=== PATIENT | male | born 1990 | race Caucasian/White ===

== ENCOUNTER 2017-08-15 20:13 | Emergency (ER) | payer BC, OTHER ==
[2017-08-15 20:39] VITALS: BP 145/70
--- NOTE | 2017-08-15 20:58 | UC ---
Abdominal Pain Male HPI - HPI Summary HPI Summary: 27 yo male with umbilical pain x 3 days worse today constant now increased with bending/twisting/movement - History of Current Complaint Chief Complaint: UCAbdominalPain Stated Complaint: ABDOMINAL PAIN Time Seen by Provider: 08/15/17 20:39 Hx Obtained From: Patient Onset/Duration: Gradual Onset, Lasting Days Timing: Constant Severity Initially: Mild Severity Currently: Moderate Pain Intensity: 6 Pain Scale Used: 0-10 Numeric Location: Other - below umbilicus Radiates: No Character: Sharp Aggravating Factor(s): Movement Alleviating Factor(s): Nothing Associated Signs And Symptoms: Positive: Negative - Allergies/Home Medications Allergies/Adverse Reactions: Allergies Allergy/AdvReac Type Severity Reaction Status Date / Time No Known Allergies Allergy Verified 08/15/17 20:34 PMH/Surg Hx/FS Hx/Imm Hx Previously Healthy: Yes - Surgical History Surgical History: None - Family History Known Family History: Positive: Hypertension, Other - no FMH of furuncles or carbuncles - Social History Alcohol Use: Weekly Substance Use Type: None Smoking Status (MU): Never Smoked Tobacco Review of Systems Constitutional: Negative Skin: Negative Eyes: Negative ENT: Negative Respiratory: Negative Cardiovascular: Negative Gastrointestinal: Abdominal Pain Genitourinary: Negative Motor: Negative Neurovascular: Negative Musculoskeletal: Negative Neurological: Negative Psychological: Negative Is Patient Immunocompromised?: No All Other Systems Reviewed And Are Negative: Yes Physical Exam Triage Information Reviewed: Yes Completion Of Physical Exam Limited Due To: Extremis Appearance: Well-Appearing, No Pain Distress, Well-Nourished Vital Signs: Initial Vital Signs Temp 98.2 F 08/15/17 20:34 Pulse 65 08/15/17 20:34 Resp 16 08/15/17 20:34 BP 145/70 08/15/17 20:34 Pulse Ox 99 08/15/17 20:34 Vital Signs Reviewed: Yes Eyes: Positive: Conjunctiva Clear ENT: Positive: Normal ENT inspection. Negative: Nasal congestion, Nasal drainage, Trismus, Muffled/hoarse voice Neck: Positive: Supple, Nontender, No Lymphadenopathy Respiratory: Positive: Lungs clear, Normal breath sounds, No respiratory distress Cardiovascular: Positive: RRR, No Murmur Abdomen Description: Positive: No Organomegaly, Soft, Hernia @ - ? marble size unreducable umbilical herna, McBurney's Point Tenderness - slight. Negative: CVA Tenderness (R), CVA Tenderness (L) Musculoskeletal: Positive: ROM Intact, No Edema Neurological Exam: Normal Psychological Exam: Normal Skin Exam: Normal Abd Pain Male Course/Dx - Course Course Of Treatment: d/w attending at [facility]. Accepts patient. he elects to go there by POV - Differential Dx/Clinical Impression Provider Diagnoses: abdominal pain ? umbilical hernia Discharge - Discharge Plan Condition: Stable Disposition: TRANS [facility] Patient Education Materials: Acute Abdominal Pain (ED) Referrals: Veronika Marino PA [Primary Care Provider] - Additional Instructions: To [facility] ER don't eat or drink anything You may have an umbilical hernia
== END 2017-08-15 20:51 | disposition short-term general hospital (02) ==
LOC: UCCORT 20:13
DX: R10.9 Unspecified abdominal pain (principal)
CPT/HCPCS: 99212; G0463

== ENCOUNTER 2017-09-17 12:24 | Emergency (ER) | payer BC ==
[2017-09-17 14:19] VITALS: BP 156/77
--- NOTE | 2017-09-17 14:37 | UC ---
Throat Pain/Nasal Terence HPI - HPI Summary HPI Summary: increased sinus pressure and headache, ear pain - History of Current Complaint Chief Complaint: UCRespiratory Stated Complaint: RESPIRATORY Time Seen by Provider: 09/17/17 14:14 Hx Obtained From: Patient Onset/Duration: Sudden Onset, Lasting Weeks Severity: Moderate Associated Signs & Symptoms: Positive: Wheezing, Sinus Discomfort, Nasal Discharge - Allergies/Home Medications Allergies/Adverse Reactions: Allergies Allergy/AdvReac Type Severity Reaction Status Date / Time No Known Allergies Allergy Verified 09/17/17 14:19 Home Medications: Home Medications Dextromethorphan-Phenylephrine [Tylenol Cold Max 10-5-325 mg] 2 tab PO BID PRN 09/17/17 [History Confirmed 09/17/17] PMH/Surg Hx/FS Hx/Imm Hx Previously Healthy: Yes - Surgical History Surgical History: None - Family History Known Family History: Positive: Hypertension, Other - no FMH of furuncles or carbuncles - Social History Alcohol Use: Weekly Alcohol Amount: 2-3 Substance Use Type: Marijuana Substance Use Comment - Amount & Last Used: End of Smoking Status (MU): Former Smoker When Did the Patient Quit Smoking/Using Tobacco: 2013 Review of Systems Constitutional: Fatigue Skin: Negative Eyes: Negative ENT: Ear Ache, Nasal Discharge, Sinus Congestion, Sinus Pain/Tenderness Respiratory: Cough Cardiovascular: Negative Gastrointestinal: Negative Motor: Negative Neurovascular: Negative Musculoskeletal: Negative Neurological: Headache Psychological: Negative Is Patient Immunocompromised?: No All Other Systems Reviewed And Are Negative: Yes Physical Exam Triage Information Reviewed: Yes Appearance: Well-Nourished, Ill-Appearing, Pain Distress Vital Signs: Initial Vital Signs Temp 98.2 F 09/17/17 14:10 Pulse 78 09/17/17 14:10 Resp 18 09/17/17 14:10 BP 156/77 09/17/17 14:10 Pulse Ox 98 09/17/17 14:10 Vital Signs Reviewed: Yes Eye Exam: Normal ENT: Positive: Pharyngeal erythema - with exudat on phyarnx, Nasal congestion, TM bulging, TM dull, Sinus tenderness Dental Exam: Normal Neck exam: Normal Neck: Positive: Supple, Nontender, No Lymphadenopathy Respiratory Exam: Normal Respiratory: Positive: Chest non-tender, Normal breath sounds, Wheezing, Inspiration Cardiovascular Exam: Normal Cardiovascular: Positive: RRR, No Murmur, Pulses Normal Abdominal Exam: Normal Abdomen Description: Positive: Nontender, No Organomegaly, Soft Bowel Sounds: Positive: Present Musculoskeletal Exam: Normal Neurological Exam: Normal Psychological Exam: Normal Skin Exam: Normal Throat Pain/Nasal Course/Dx - Course Course Of Treatment: hx obtained, exam performed ,meds reviewed, treated for sinusitis - Differential Dx/Diagnosis Differential Diagnosis/HQI/PQRI: Otitis Media, Pharyngitis, Sinusitis, URI Provider Diagnoses: wheezing. sinusitis Discharge - Discharge Plan Condition: Stable Disposition: HOME Prescriptions: Azithromyxin LILLIE (NF) [Z-Lillie (Zithromax) 250 mg tabs #6] 2 tab PO .TODAY, THEN 1 DAILY #6 tab Patient Education Materials: Sinusitis (ED) Referrals: Veronika Marino PA [Primary Care Provider] -
== END 2017-09-17 14:47 | disposition home or self-care (01) ==
LOC: UCCORT 12:24
DX: J32.9 Chronic sinusitis, unspecified (principal); R06.2 Wheezing; Z87.891 Personal history of nicotine dependence
CPT/HCPCS: 99212; G0463

== ENCOUNTER 2017-10-20 12:23 | Emergency (ER) | payer BC ==
--- NOTE | 2017-10-20 12:50 | UC ---
Nausea/Vomiting/Diarrhea HPI - HPI Summary HPI Summary: 27 year old male presents with complains of vomiting x 1 day. - History of Current Complaint Stated Complaint: VOMITING Time Seen by Provider: 10/20/17 12:49 Hx Obtained From: Patient Onset/Duration: Sudden Onset Severity Initially: Moderate Severity Currently: Moderate Pain Scale Used: 0-10 Numeric - 5 Location: Discrete At: LLQ Character: Sharp Aggravating Factor(s): Nothing - Allergies/Home Medications Allergies/Adverse Reactions: Allergies Allergy/AdvReac Type Severity Reaction Status Date / Time No Known Allergies Allergy Verified 10/20/17 12:52 PMH/Surg Hx/FS Hx/Imm Hx Previously Healthy: Yes - Surgical History Surgical History: None - Family History Known Family History: Positive: Hypertension, Other - no FMH of furuncles or carbuncles - Social History Alcohol Use: Weekly Alcohol Amount: 2-3 Substance Use Type: Marijuana Substance Use Comment - Amount & Last Used: End of Smoking Status (MU): Former Smoker When Did the Patient Quit Smoking/Using Tobacco: 2013 Review of Systems Constitutional: Negative Skin: Negative Eyes: Negative ENT: Negative Respiratory: Negative Cardiovascular: Negative Gastrointestinal: Abdominal Pain, Vomiting, Nausea Genitourinary: Negative Motor: Negative Neurovascular: Negative Musculoskeletal: Negative Neurological: Negative Psychological: Negative All Other Systems Reviewed And Are Negative: Yes Physical Exam Triage Information Reviewed: Yes Vital Signs Reviewed: Yes Eye Exam: Normal ENT Exam: Normal Dental Exam: Normal Neck exam: Normal Neck: Positive: 1 Respiratory Exam: Normal Cardiovascular Exam: Normal Abdomen Description: Positive: Soft, Other: - llq pain Musculoskeletal Exam: Normal Neurological Exam: Normal Psychological Exam: Normal Skin Exam: Normal Naus/Vom/Diarrhea Course/Dx - Differential Dx/Diagnosis Provider Diagnoses: llq pain. nausea. vomiting Condition At Discharge: Stable Discharge - Discharge Plan Condition: Stable Disposition: HOME Prescriptions: Ondansetron ODT TAB* [Zofran 4 MG Odt TAB*] 4 mg PO Q8H PRN #9 tab.odt PRN Reason: Nausea Patient Education Materials: Acute Nausea and Vomiting (ED) Referrals: No Primary Care Phys,NOPCP [Primary Care Provider] -
[2017-10-20 12:55] VITALS: BP 139/83
== END 2017-10-20 13:06 | disposition home or self-care (01) ==
LOC: UCCORT 12:23
DX: R11.2 Nausea with vomiting, unspecified (principal); R10.32 Left lower quadrant pain; F12.90 Cannabis use, unspecified, uncomplicated; Z87.891 Personal history of nicotine dependence
CPT/HCPCS: 99212; G0463

== ENCOUNTER 2017-11-30 17:13 | Emergency (ER) | payer SELFPAY ==
[2017-11-30 20:44] VITALS: BP 140/72
--- NOTE | 2017-11-30 20:50 | UC ---
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 Pt reports he was helping restraining someone and his co-worker who was helping fell on top of his knee. He had mild linping after work. However yesterday he developed some numbness and tingling over the lateral side and key of his LF lower leg. Pain now is 5/10 w/ movement. He is able to bear weight. Pt denies swelling or bruising, calf pain, SOB, chest pain, abdominal pain, N/V/D - History of Current Complaint Chief Complaint: UCLowerExtremity Stated Complaint: LEFT LEG INJURY (WC) Time Seen by Provider: 11/30/17 20:48 Hx Obtained From: Patient Onset/Duration: Sudden Onset, Lasting Days - 3 days, Still Present, Worse Since - today Severity Initially: Moderate Severity Currently: Moderate Pain Intensity: 5 - w/ movement Pain Scale Used: 0-10 Numeric Aggravating Factor(s): Ambulation Alleviating Factor(s): Rest Able to Bear Weight: Yes - Risk Factors Gout Risk Factors: Negative DVT Risk Factors: Negative Septic Arthritis Risk Factor: Negative - Allergies/Home Medications Allergies/Adverse Reactions: Allergies Allergy/AdvReac Type Severity Reaction Status Date / Time No Known Allergies Allergy Verified 11/30/17 20:36 PMH/Surg Hx/FS Hx/Imm Hx Previously Healthy: Yes Respiratory History: Asthma - Surgical History Surgical History: None - Family History Known Family History: Positive: Cardiac Disease, Hypertension, Diabetes Family History: Dyslipidemia - Social History Occupation: Employed Full-time Lives: With Family Alcohol Use: Occasionally Alcohol Amount: 2-3 Substance Use Type: Marijuana Substance Use Comment - Amount & Last Used: End of Smoking Status (MU): Former Smoker When Did the Patient Quit Smoking/Using Tobacco: 2013 - Immunization History Most Recent Influenza Vaccination: Not the Season Review of Systems Constitutional: Negative Skin: Negative Eyes: Negative ENT: Negative Respiratory: Negative Cardiovascular: Negative Gastrointestinal: Negative Genitourinary: Negative Motor: Negative Neurovascular: Negative Musculoskeletal: Other: - Left lower pain and left knee pain s/p injury at work Neurological: Negative Psychological: Negative Is Patient Immunocompromised?: No All Other Systems Reviewed And Are Negative: Yes Physical Exam Triage Information Reviewed: Yes Vital Signs: Initial Vital Signs Temp 98.8 F 11/30/17 20:37 Pulse 60 11/30/17 20:37 Resp 22 11/30/17 20:37 BP 140/72 11/30/17 20:37 Pulse Ox 99 11/30/17 20:37 - Additional Comments Vital Signs Reviewed: Yes General: well developed, well nourished male sitting in the examining table w/o any apparent distress Eyes: Positive: Conjunctiva Clear - PERRLA, EOMI, fundi grossly normal ENT: Positive: Normal ENT inspection, Hearing grossly normal, Pharynx normal, TMs normal Neck: Positive: Supple, Nontender, No Lymphadenopathy Respiratory: Positive: Chest nontender, Lungs clear, Normal breath sounds, No respiratory distress Cardiovascular: Positive: RRR, No Murmur, Pulses Normal, Brisk Capillary Refill Abdomen Description: Positive: Nontender, No Organomegaly, Soft. Negative: CVA Tenderness (R), CVA Tenderness (L) Bowel Sounds: Positive: Present Musculoskeletal: Positive: Strength Intact, No Edema,LF knee: Pt is able to bear weight and ambulate with limping. No surface trauma, soft tissue swelling , or obvious effusion. No overlying erythema or warmth. The L knee is without obvious asymmetry or deformity when compared with the R knee. Decreased ROM of LF knee due to pain. No tenderness to palpation of the patella, no effusion or ballottement. No tenderness over the infrapatellar tendon. Point tenderness over the medial joint line, No tenderness over the medial or lateral tibial plateaus. No tenderness over the proximal fibular head, No tenderness, fullness or mass of the popliteal fossa. No quadriceps tenderness. No laxity of the ACL. PCL, MCL, or LCL. no collateral ligament laxity to valgus or varus stress. Negative Mark/Drawer sign. Negative Gisell. Distal motor and neurovascular status intact. Neurological Exam: Normal Psychological Exam: Normal Skin Exam: Normal Lower Extremity Course/Dx - Course Course Of Treatment: 27 y/o male presents the urgent care c/o left knee pain s/ p injury while restraining a Pt wt work on 11/28/2017. Pt reports he was helping restraining someone and his co-worker who was helping fell on top of his knee. He had mild linping after work. However yesterday he developed some numbness and tingling over the lateral side and key of his LF lower leg. Pain now is 5/ 10 w/ movement. He is able to bear weight. Pt denies swelling or bruising, calf pain, SOB, chest pain, abdominal pain, N/V/D. Hx obtained. LF knee X-ray ordered. Impression:No acute osseous injury. LF lower leg X-ray ordered, Impression: no evidence of fractured observed. Pt's knee immobilized w/ sudheer bandage.Advised RICE. Avoid strenuous exercise or standing for long period of time. Strongly advised if not improvement of symptoms to f/u with Orthopedic Dr Calero or your PCP in 1 week for further evaluation and treatment. Pt's BP is elevated today advised to decrease salt in diet, monitor BP and f/u with PCP for further management. PT understood and agreed with D/C instructions. - Differential Dx/Diagnosis Differential Diagnosis/HQI/PQRI: Contusion, Fracture (Closed), Sprain, Strain, Tendonitis Provider Diagnoses: 1- Left knee pain s/p injury. 2-elevated BP w/o Hx of HTN Discharge - Discharge Plan Condition: Stable Disposition: HOME Prescriptions: Naproxen [Naproxen 500 mg] 500 mg PO Q8H PRN #30 tab PRN Reason: Pain Patient Education Materials: Knee Sprain (ED), Low-Sodium Diet (ED) Forms: *Work Release Referrals: [facility] [Outside] - 1 Week Daniel Calero MD [Medical Doctor] - 1 Week Additional Instructions: 1-Please take medications as directed to alleviate pain and swelling. 2-Please apply ice, keep your knee immobilized with the Sudheer bandage 3- Please f/u with Orthopedic DR Calero or your PCP in 1 week is not improvement of symptoms for further evaluation and treatment. 4-Your BP is elevated today. please decrease salt in your diet, monitor BP and if it continues to be elevated please f/u with your PCP for further management
--- NOTE | 2017-11-30 21:41 | RAD ---
INDICATION: Left knee injury. TECHNIQUE: 4 views of the left knee were obtained. FINDINGS: The bones are in normal alignment. No joint effusion or fracture is seen. Joint spaces appear maintained. IMPRESSION: NO EVIDENCE FOR FRACTURE.
--- NOTE | 2017-11-30 21:43 | RAD ---
INDICATION: Left lower leg injury. TECHNIQUE: 2 views of the left lower leg were obtained. FINDINGS: The bones are normal alignment. No fracture is seen. IMPRESSION: NO EVIDENCE OF FRACTURE.
[2017-11-30] MEDS ORDERED: Naproxen TAB* 250 MG PO ONE (21:56)
== END 2017-11-30 22:18 | disposition home or self-care (01) ==
LOC: UCCORT 17:13
DX: M25.562 Pain in left knee (principal); R03.0 Elevated blood-pressure reading, without diagnosis of hypertension; R20.0 Anesthesia of skin; R20.2 Paresthesia of skin; J45.909 Unspecified asthma, uncomplicated; F12.90 Cannabis use, unspecified, uncomplicated; Z87.891 Personal history of nicotine dependence
CPT/HCPCS: 99212; A9270-GY; G0463

== ENCOUNTER 2018-03-01 07:15 | Emergency (ER) | payer BC, OTHER ==
--- OUTSIDE RECORDS SUMMARY | 2018-03-01 07:32 | XMS REPORT ---
:1990 External Reference #:[id number] Author Organization [facility] Address [address] [address] Phone [phone] Care Team Providers Name Role Phone Patient's Choice Primary Care Physician Unavailable Payers Type Date Identification Numbers Payment Provider Subscriber Workers Compensation Effective: Policy Number: Nysif Humberto Cristobal 2017 [id number] Onset: 2017 PayID: RELL [address] [address] [place] [address] Problems Date Description Provider Status Onset: 12/01/2017 Asthma Opal Reece MD Active Onset: 12/01/2017 Anxiety Opal Reece MD Active Onset: 12/01/2017 Knee joint effusion Opal Reece MD Active Onset: 12/01/2017 Traumatic injury of common peroneal nerve Opal Reece MD Active Family History Date Family Member(s) Problem(s) Comments General No Current Problems Social History Type Date Description Comments Lives With Family Occupation [employer] ETOH Use Occasionally consumes alcohol Smoking Patient is a former smoker Smoking Patient is a former smoker Quit 4 years ago Exercise Type/Frequency Exercises regularly Allergies, Adverse Reactions, Alerts Date Description Reaction Status Severity Comments 12/01/2017 NKDA active Medications Medication Date Status Form Strength Qnty SIG Indications Ordering Provider Roll-A-Bout Active Disp 1 S84.12xA Zaneb 018 avery-a-ector Reece MD ut knee scooter Diclofenac Active Tablets DR 75mg 60tabs take 1 S84.12xA Zaneb Sodium 018 tablet MD Shanell twice a day with food No Active Hx Unknown Medications 018 - 018 Vital Signs Date Vital Result Comment 02/02/2018 Height 67 inches 5'7" Weight 195.00 lb Heart Rate 115 /min Respiratory Rate 16 /min Pain Level 5 BMI (Body Mass Index) 30.5 kg/m2 12/22/2017 Height 67 inches 5'7" Weight 195.00 lb per pt BP Systolic 150 mmHg BP Diastolic 80 mmHg Respiratory Rate 16 /min Body Temperature 97.6 F Pain Level 6 BMI (Body Mass Index) 30.5 kg/m2 12/14/2017 Height 67 inches 5'7" Weight 195.00 lb BP Systolic 118 mmHg BP Diastolic 70 mmHg Respiratory Rate 18 /min Pain Level 6 BMI (Body Mass Index) 30.5 kg/m2 12/01/2017 Heart Rate 76 /min BP Systolic 146 mmHg BP Diastolic 72 mmHg Respiratory Rate 17 /min Body Temperature 97.2 F Pain Level 7 Results Description No Information Procedures Description No Information Encounters Type Date Location Provider CPT E/M Dx Office Visit 12/22/2017 [place] [id number] S84.12xD 1:[facility] Office Visit 12/14/2017 [place] [address] S84.12xA 1:15p [facility] M25.462 M25.562 Office Visit 12/01/2017 11:00a [facility] [address] S84.12xA [facility] S84.12xA M25.462 M25.462 S84.12xA Plan of Care Future Appointment(s):03/16/2018 10:00 am - Daniel Calero MD [facility]02/02/2018 - Daniel Calero MDS84.12xD Injury of peroneal nerve at lower leg level, left leg, subsFollow up:6 weeks
[2018-03-01 07:40] VITALS: BP 145/79
[2018-03-01] MEDS ORDERED: predniSONE TAB* 20 MG PO ONE (07:48)
[2018-03-01] MEDS ORDERED: Azithromycin TAB* 250 MG PO ONE (07:49)
--- NOTE | 2018-03-01 08:02 | ED ---
Respiratory - HPI Summary HPI Summary: 27 yr old male with the complaint of cough for 2.5 weeks. He has been coughing up yellow green sputum and this morning during a coughing spell he coughed up some blood. his voice has been a little hoarse as well. He has ill exposures in the family. No other complaints. - History of Current Complaint Chief Complaint: UCRespiratory Stated Complaint: COUGH W/BLOOD,ST,CONGESTION Time Seen by Provider: 03/01/18 07:48 Pain Intensity: 0 - Allergy/Home Medications Allergies/Adverse Reactions: Allergies Allergy/AdvReac Type Severity Reaction Status Date / Time No Known Allergies Allergy Verified 03/01/18 07:34 Home Medications: Home Medications Pseudoephedrine HCl [Sudafed] 30 mg PO QID PRN 03/01/18 [History Confirmed 03/01] PMH/Surg Hx/FS Hx/Imm Hx Respiratory History: Reports: Hx Asthma - exercised induced Infectious Disease History: No Infectious Disease History: Denies: Hx Clostridium Difficile, Hx Hepatitis, Hx Human Immunodeficiency Virus (HIV), Hx of Known/Suspected MRSA, Hx Shingles, Hx Tuberculosis, Hx Known/ Suspected VRE, Hx Known/Suspected VRSA, History Other Infectious Disease, Traveled Outside the [place] in Last 30 Days - Family History Known Family History: Positive: Cardiac Disease, Hypertension, Diabetes, Other - no FMH of furuncles or carbuncles Family History: Dyslipidemia - Social History Alcohol Use: Occasionally Alcohol Amount: 2-3 Substance Use Type: Reports: None Substance Use Comment - Amount & Last Used: End of Smoking Status (MU): Former Smoker Review of Systems Constitutional: Negative Positive: Cough All Other Systems Reviewed And Are Negative: Yes Physical Exam Triage Information Reviewed: Yes Vital Signs On Initial Exam: Initial Vitals Temp Pulse Resp BP Pulse Ox 98.3 F 75 18 145/79 98 03/01/18 07:35 03/01/18 07:35 03/01/18 07:35 03/01/18 07:35 03/01/18 07:35 Vital Signs Reviewed: Yes Appearance: Positive: Well-Appearing, No Pain Distress Skin: Positive: Warm, Skin Color Reflects Adequate Perfusion Head/Face: Positive: Normal Head/Face Inspection Eyes: Positive: EOMI ENT: Positive: TM dull - right, TM red - right Neck: Positive: Nontender Respiratory/Lung Sounds: Positive: Clear to Auscultation, Breath Sounds Present Cardiovascular: Positive: RRR. Negative: Murmur Abdomen Description: Positive: Nontender Musculoskeletal: Positive: Strength/ROM Intact Neurological: Positive: Sensory/Motor Intact, Alert, Oriented to Person Place, Time, CN Intact II-III Psychiatric: Positive: Normal - Uday Coma Scale Best Eye Response: 4 - Spontaneous Best Motor Response: 6 - Obeys Commands Best Verbal Response: 5 - Oriented Coma Scale Total: 15 Diagnostics - Vital Signs Vital Signs Temp Pulse Resp BP Pulse Ox 03/01/18 07:35 98.3 F 75 18 145/79 98 - Laboratory Lab Statement: Any lab studies that have been ordered have been reviewed, and results considered in the medical decision making process. - Radiology chest xray pa/lat Xray Interpretation: No Acute Changes Radiology Interpretation Completed By: Radiologist Disposition - Course Course Of Treatment: 27 yr old with otitis media and laryngitis. Rx with zithromax and prednisone - Diagnoses Provider Diagnoses: Laryngotracheobronchitis, Otitis media, Hypertension Discharge - Sign-Out/Discharge Documenting (check all that apply): Discharge/Admit/Transfer - Discharge Plan Condition: Good Disposition: HOME Prescriptions: Azithromycin TAB* [Zithromax TAB (Z-LILLIE) 250 mg #6 tabs] 2 tab PO .TODAY, THEN 1 DAILY #1 lillie predniSONE TAB* [Deltasone TAB*] 20 mg PO DAILY #3 tab Patient Education Materials: Ear Infection (ED), Croup in Adults (ED), Hypertension (ED) Referrals: No Primary Care Phys,NOPCP [Primary Care Provider] - [facility] [Outside] - Billing Disposition and Condition Condition: GOOD Disposition: HOME
--- NOTE | 2018-03-01 08:31 | RAD ---
INDICATION: Hemoptysis COMPARISON: December 07, 2013 TECHNIQUE: PA and lateral dual-energy views were obtained. FINDINGS: Bones/Soft Tissues: There are no acute bony findings. Cardiomediastinal: The cardiomediastinal silhouette is normal. Lungs: There are no infiltrates. Pleura: There are no pleural effusions. Other: None IMPRESSION: NORMAL CHEST.
== END 2018-03-01 08:59 | disposition home or self-care (01) ==
LOC: UCCORT 07:15
DX: J40 Bronchitis, not specified as acute or chronic (principal); H66.91 Otitis media, unspecified, right ear; I10 Essential (primary) hypertension; Z87.891 Personal history of nicotine dependence
CPT/HCPCS: 71046; 99212; A9270-GY; G0463; J7512

== ENCOUNTER → 2018-04-12 05:59 | Day surgery (SDC) | payer BC, OTHER ==
[~2018-04-12 05:59] MED LIST: Buffered Lidocaine 0.9% SYRIN* 5 ML/SYR SYRINGE INTRADERM ONE; Bupivacaine 0.5% SDV PF* 30ML VIAL ONE; Dexamethasone TAB* 4 MG ONE; Dexamethasone TAB* 4 MG PO ONE; DiMENhydriNATE IV* 50 MG/ML VIAL IV PUSH PRN; Famotidine IV* 10 MG/ML 2 ML (20 mg) IV ONE; Famotidine IV* 10 MG/ML 2 ML (20 mg) ONE; Ketorolac INJ* 30 MG/ML 1 ML VIAL ONE; Lidocaine 2% PF * 5 ML VIAL ONE; Midazolam* 1 MG/ML 5 ML VIAL (5 MG) ONE; Morphine INJ* 2 MG/ML 1 ML CARPUJECT IV PRN; Naloxone* 0.4 MG/ML 1 ML VIAL IV PRN; Ondansetron INJ* 2 MG/ML VIAL ONE; Ondansetron ODT TAB* 4 MG ONE; PROCHLORPERAZINE INJ 5 MG/ML 2 ML VIAL IV PRN; PROCHLORPERAZINE INJ 5 MG/ML 2 ML VIAL ONE; Propofol* 10 MG/ML 20 ML BTL IV PUSH ONE; Scopolamine 1.5 mg* PATCH TRANSDERM PRN; Scopolamine PATCH Remove* 1 NOTE MISC PATCH OFF ONE; ceFAZolin 2 GM PREMIX (*) 2 GM/50 ML BAG IVPB ONE; fentaNYL* 50 MCG/ML 2 ML VIAL (100 MCG VIAL) IV PRN; fentaNYL* 50 MCG/ML 2 ML VIAL (100 MCG VIAL) ONE; oxyCODONE/Acetamin 5/325 MG* TAB ONE; oxyCODONE/Acetamin 5/325 MG* TAB PO PRN
--- NOTE | 2018-04-12 08:15 | OP ---
Operative Report - Blank - Operative Report Date of Operation: 04/12/18 Note: PATIENT: Humberto Lentz DATE OF : 1990 DATE OF SURGERY: 04/12/2018 SURGEON: Daniel Calero MD PRINCIPAL NETWORK ARCHITECT: ESTEVAN Patel, whos assistance was necessary for positioning, retraction, help with instrumentation, and closure. ANESTHESIOLOGIST: Dr. Samson PREOPERATIVE DIAGNOSIS: Left superficial peroneal nerve entrapment POSTOPERATIVE DIAGNOSIS: Left superficial peroneal nerve entrapment OPERATION: Left superficial peroneal nerve surgical release ANESTHESIA: LMA IMPLANTS: none TOURNIQUET TIME: Less than one hour with a well-padded thigh tourniquet at 250 mmHg SPECIMENS: None ESTIMATED BLOOD LOSS: Minimal COMPLICATIONS: none STATUS: Stable from the operating room to the recovery room and then home. INDICATIONS FOR PROCEDURE: Humberto had a work-related injury and persistent pain centered at the SPN where it pierces the fascia. We tried extensive nonoperative treatment and pain persisted. Both operative and non-operative treatment alternatives were reviewed. Further, the nature and risks of surgery were reviewed in careful detail, in the office as well as the pre-operative holding area. Our discussions regarding the risks of surgery included, but were not limited to, infection, wound problems, nerve injury, neuroma, RSD, persistent symptoms, blood clot, failure of the surgery, need for further surgery and even the remote chance of catastrophic complication, including loss of limb. DESCRIPTION OF PROCEDURE: The patient was seen in the preoperative holding unit and informed written consent was obtained. The appropriate extremity was marked. The patient was then brought to the operating room and carefully positioned on the operating room table. Anesthesia was induced. All bony prominences were padded with great care. A well-padded thigh tourniquet was placed. A chlorhexidine based pre- scrub was performed followed by a chloraprep prep and drape in standard sterile fashion. A surgical safety pause was then conducted in which we confirmed the appropriate patient, extremity, planned procedure, availability of equipment, indication and administration of prophylactic antibiotics, and DVT prophylaxis in the form of a compression boot on the non-surgical extremity. I began with Esmarch exsanguination of the limb and inflated the tourniquet. An approximately 5cm longitudinal incision was made at the anterolateral distal leg, centered 10cm proximal to the tip of the distal fibula. This was also the spot identified by Humberto pre-op as the epicenter of the pain. I utilized careful blunt dissection through the subcutaneous tissue to the fascial layer. The superficial peroneal nerve was identified and traced proximally to where it pierces through the fascia. I carefully dissected out the nerve. There were a lot of adhesions of the nerve to the fascia. I then carefully released the fascia proximally and distally from where the nerve pierces the fascia. I ellipsed out and excised a small area of the fascia to decompress the nerve. I carefully explored the nerve to confirm that there were no further constrictions. It appeared to be well released. The wound was copiously irrigated and meticulously closed in layers utilizing 3- 0 Monocryl and 3-0 nylon. A sterile dressing was then applied. The patient was then awakened from anesthesia and transferred to the recovery room in stable condition. There were no complications. All needle and sponge counts were correct at the end of the case. ATTESTATION: I attest I was present and scrubbed and performed the critical portions of the procedure myself. POSTOPERATIVE PLAN: Follow-up will be in 2 weeks for likely suture removal and progression of weightbearing and activities.
[2018-04-12 09:22] VITALS: BP 131/85
== END | disposition home or self-care (01) ==
LOC: OR 05:59
PROVIDERS: ATTEND Orthopaedic Surgery
DX: S84.12XA Injury of peroneal nerve at lower leg level, left leg, initial encounter (principal); G57.32 Lesion of lateral popliteal nerve, left lower limb; Z87.891 Personal history of nicotine dependence; Y35.811A Legal intervention involving manhandling, law enforcement official injured, initial encounter; Y92.149 Unspecified place in prison as the place of occurrence of the external cause; Y99.0 Civilian activity done for income or pay
CPT/HCPCS: A9270-GY; J0690; J0780; J1885; J2250; J2704; J3010; J8540

== ENCOUNTER 2019-10-19 08:26 | Emergency (ER) | payer OTHER ==
[2019-10-19 08:52] VITALS: BP 140/90
[2019-10-19] MEDS ORDERED: Ibuprofen TAB* 600 MG PO ONE (09:10)
--- NOTE | 2019-10-19 09:10 | UC ---
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 Two co- workers landed on his left knee. Pt states he has pain when walking but more pain when going down the stairs. Took 800mg of Ibuprofen at 2330 10/18/19" -he hurt his knee anteriorly as he brought the kid down to the floor and then had a valgus force applied to his knee by 2 different people helping in the restraint. -knee buckled initially when he stood up but it has not ocured since then. -he had an injury to left peroneal nerve ion past that took > 7 mo to recover from. these sx are not similar. -pain is anterior knee, medial and lateral, but says its deep. -last night he iced it, elec=vated and rested and now nearly all karl swelling is resolved. no bruising. doesnt feel warm. -not giving out or locking - History of Current Complaint Chief Complaint: UCLowerExtremity Stated Complaint: WC-LEFT KNEE INJURY Time Seen by Provider: 10/19/19 08:57 Pain Intensity: 4 - Allergies/Home Medications Allergies/Adverse Reactions: Allergies Allergy/AdvReac Type Severity Reaction Status Date / Time No Known Allergies Allergy Verified 10/19/19 08:53 Home Medications: Home Medications Ibuprofen TAB* [Motrin TAB* 800 MG] 800 mg PO Q6H PRN 10/19/19 [History Confirmed 10/19/19] PMH/Surg Hx/FS Hx/Imm Hx Previously Healthy: Yes - Surgical History Surgical History: Yes Surgery Procedure, Year, and Place: Lt LOWER LEG - NERVE ENTRAPMENT FROM SCAR - REMOVAL OF SCAR TISSUE - Family History Known Family History: Positive: Cardiac Disease, Hypertension, Diabetes, Other - no FMH of furuncles or carbuncles Family History: Dyslipidemia - Social History Alcohol Use: Occasionally Alcohol Amount: 5-15 Substance Use Type: None Substance Use Comment - Amount & Last Used: daily Smoking Status (MU): Former Smoker Amount Used/How Often: pack a day for 6 yrs When Did the Patient Quit Smoking/Using Tobacco: 2013 - Immunization History Most Recent Influenza Vaccination: Not the 2017/2017 Season Review of Systems All Other Systems Reviewed And Are Negative: Yes Constitutional: Positive: Negative Skin: Positive: Negative Respiratory: Positive: Negative Cardiovascular: Positive: Negative Gastrointestinal: Positive: Negative Motor: Negative: Decreased ROM, Weakness Neurovascular: Positive: Negative. Negative: Decreased Sensation Musculoskeletal: Positive: Other: - see above Neurological: Positive: Negative. Negative: Weakness, Paresthesia, Numbness Psychological: Positive: Negative Is Patient Immunocompromised?: No Physical Exam Triage Information Reviewed: Yes Appearance: Well-Appearing, No Pain Distress, Well-Nourished - very pleasant. good historian Vital Signs: Initial Vital Signs Temp 97.9 F 10/19/19 08:47 Pulse 73 10/19/19 08:47 Resp 16 10/19/19 08:47 BP 140/90 10/19/19 08:47 Pulse Ox 100 10/19/19 08:47 Vital Signs Reviewed: Yes Eye Exam: Normal Respiratory Exam: Normal Cardiovascular Exam: Normal Musculoskeletal Exam: Normal Musculoskeletal: Positive: Other: - left knee - possible minimal swelling pre- patella area. FROM w/o cerpitus B/L. no varus/valgus laxity b/l. Neg lachmans. neg Ant/post drawer test. sterngth 5/5. sensationi ntact. no bruising. cool to touch. no erythema. no skin tears. Neurological Exam: Normal Psychological Exam: Normal Skin Exam: Normal Knee Pain Course/Dx - Course Course Of Treatment: Left knee xray - neg -[place] [facility] [place] best friend is their medical appointment scheduler and she will get him in w/someone this week in the office for f/u. will give work release for the week bc shortend week w/ holiday and uncertin of when f/u will be. -ppwk completed to the best of my ability. -knee sleeve. ice rest, nsaids. -he understood me well, appreacitive and agreeable with plan. - Differential Dx/Diagnosis Differential Diagnosis/HQI/PQRI: Contusion, Dislocation, Sprain, Strain Provider Diagnosis: Left knee pain Discharge ED - Sign-Out/Discharge Documenting (check all that apply): Patient Departure All imaging exams completed and their final reports reviewed: Yes - Discharge Plan Condition: Stable Disposition: HOME Patient Education Materials: Knee Pain (ED) Forms: *Work Release Referrals: No Primary Care Phys,NOPCP [Primary Care Provider] - Additional Instructions: We talked about you following up with your orthopedic surgeon Dr Donald this week. Ice, rest, elevation, ibuprofen. Buying a knee sleeve may be helpful as well. -Your blood pressure is slightly elevated today at 140/90, which is frequently elevated with pain and ibuprofen. You should have this rechecked this week. - Billing Disposition and Condition Condition: STABLE Disposition: Home
== END 2019-10-19 10:21 | disposition home or self-care (01) ==
LOC: UCCORT 08:26
DX: M25.562 Pain in left knee (principal); Z87.891 Personal history of nicotine dependence
CPT/HCPCS: 99211; A9270-GY; G0463

== ENCOUNTER 2019-12-03 16:57 | Emergency (ER) | payer SELFPAY ==
--- OUTSIDE RECORDS SUMMARY | 2019-12-03 18:58 | XMS REPORT | Continuity of Care Document ---
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 Problems Active Problems Provider Date Asthma Opal Reece MD Onset: 12/01/2017 Anxiety Opal Reece MD Onset: 12/01/2017 Traumatic injury of common peroneal nerve Opal Reece MD Onset: 12/01/2017 Knee joint effusion Opal Reece MD Onset: 12/01/2017 Synovitis and/or tenosynovitis - ankle and/or Daniel Calero MD Onset: 2017 foot Social History Type Date Description Comments Sex Unknown ETOH Use Occasionally consumes alcohol Tobacco Use Start: Unknown End: Patient is a former Unknown smoker Tobacco Use Start: Unknown End: Patient is a former Quit 4 years ago Unknown smoker Smoking Status Reviewed: 11/12/19 Patient is a former Quit 4 years ago smoker Exercise Exercises regularly Type/Frequency Allergies, Adverse Reactions, Alerts Description No Known Drug Allergies Medications Description No Active Medications Immunizations Description No Information Available Vital Signs Date Vital Result Comment 11/12/2019 9:07am Height 67 inches 5'7" Weight 208.00 lb Heart Rate 71 /min BP Systolic Sitting 118 mmHg BP Diastolic Sitting 70 mmHg Respiratory Rate 16 /min Pain Level 1 O2 % BldC Oximetry 98 % BMI (Body Mass Index) 32.6 kg/m2 10/25/2019 1:32pm Height 67 inches 5'7" Weight 207.00 lb Heart Rate 72 /min BP Systolic Sitting 128 mmHg BP Diastolic Sitting 82 mmHg Respiratory Rate 16 /min Pain Level 3 O2 % BldC Oximetry 97 % BMI (Body Mass Index) 32.4 kg/m2 Results Description No Information Available Procedures Description No Information Available Medical Devices Description No Information Available Encounters Type Date Location Provider Dx Diagnosis Office Visit 10/25/2019 [facility] Eric Mack, S83.412A Sprain of medial 1:30p at [place] collateral ligament of left knee, init S83.412A Sprain of medial collateral ligament of left knee, init Assessments Date Code Description Provider 11/12/2019 S83.412D Sprain of medial collateral ligament of left Eric Mack MD knee, subsequent encounter 10/25/2019 S83.412A Sprain of medial collateral ligament of left Eric Mack MD knee, initial encounter 10/25/2019 S83.412A Sprain of medial collateral ligament of left Eric Mack MD knee, initial encounter Plan of Treatment 11/12/2019 - Eric Mack MDS83.412D Sprain of medial collateral ligament of left knee, subsequent encounterComments:home exercises sheetsFollow up:Follow up : As needed Functional Status Description No Information Available Mental Status Description No Information Available Referrals Description No Information Available
--- OUTSIDE RECORDS SUMMARY | 2019-12-03 18:58 | XMS REPORT | Continuity of Care Document ---
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 Hx of 1 Unknown ppd x 6 yrs ETOH Use Occasionally consumes alcohol Tobacco Use Start: Unknown End: Patient is a former smoker Unknown Smoking Status Reviewed: 05/06/19 Patient is a former smoker Allergies, Adverse Reactions, Alerts Description No Known Drug Allergies Medications Description No Active Medications Immunizations Description No Information Available Vital Signs Date Vital Result Comment 07/03/2019 1:31pm BP Systolic 145 mmHg BP Diastolic 84 mmHg Heart Rate 82 /min Height 67 inches 5'7" Weight 206.00 lb BMI (Body Mass Index) 32.3 kg/m2 BSA (Body Surface Area) 2.05 m2 [place] body weight in kilograms 67 kg O2 % BldC Oximetry 99 % 05/06/2019 2:36pm BP Systolic 136 mmHg BP Diastolic 80 mmHg Heart Rate 66 /min Respiratory Rate 16 /min Height 67 inches 5'7" Weight 207.00 lb BMI (Body Mass Index) 32.4 kg/m2 BSA (Body Surface Area) 2.05 m2 [place] body weight in kilograms 67 kg O2 % BldC Oximetry 98 % Results Description No Information Available Procedures Description No Information Available Medical Devices Description No Information Available Encounters Type Date Location Provider Dx Diagnosis Office Visit 07/03/2019 Surgical Office Lola [id number] Other specified 1:30p frankie Lake M.D. states Assessments Date Code Description Provider 07/03/2019 Z98.890 Other specified postprocedural Jordan Williamson M.D. states Plan of Treatment No Information Available Functional Status Functional Condition Comment Date Status Glasses Active Mental Status Description No Information Available Referrals Description No Information Available
--- OUTSIDE RECORDS SUMMARY | 2019-12-03 18:58 | XMS REPORT | Continuity of Care Document ---
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
--- OUTSIDE RECORDS SUMMARY | 2019-12-03 18:58 | XMS REPORT | Continuity of Care Document ---
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
--- OUTSIDE RECORDS SUMMARY | 2019-12-03 18:58 | XMS REPORT | Continuity of Care Document ---
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 Problems Active Problems Provider Date Asthma Opal Reece MD Onset: 12/01/2017 Anxiety Opal Reece MD Onset: 12/01/2017 Traumatic injury of common peroneal nerve Opal Reece MD Onset: 12/01/2017 Knee joint effusion Opal Reece MD Onset: 12/01/2017 Synovitis and/or tenosynovitis - ankle and/or Daniel Caelro MD Onset: 2017 foot Social History Type Date Description Comments Sex Unknown ETOH Use Occasionally consumes alcohol Tobacco Use Start: Unknown End: Patient is a former Unknown smoker Tobacco Use Start: Unknown End: Patient is a former Quit 4 years ago Unknown smoker Smoking Status Reviewed: 08/06/18 Patient is a former Quit 4 years ago smoker Exercise Exercises regularly Type/Frequency Allergies, Adverse Reactions, Alerts Description No Known Drug Allergies Medications Description No Active Medications Immunizations Description No Information Available Vital Signs Date Vital Result Comment 10/25/2019 1:32pm Height 67 inches 5'7" Weight 207.00 lb Heart Rate 72 /min BP Systolic Sitting 128 mmHg BP Diastolic Sitting 82 mmHg Respiratory Rate 16 /min Pain Level 3 O2 % BldC Oximetry 97 % BMI (Body Mass Index) 32.4 kg/m2 08/06/2018 11:48am Height 67 inches 5'7" Weight 200.00 lb Heart Rate 74 /min BP Systolic 160 mmHg BP Diastolic 82 mmHg Respiratory Rate 20 /min Body Temperature 96.3 F Pain Level 0 BMI (Body Mass Index) 31.3 kg/m2 Results Description No Information Available Procedures Description No Information Available Medical Devices Description No Information Available Encounters Description No Information Available Assessments Date Code Description Provider 10/25/2019 S83.412A Sprain of medial collateral ligament of left Eric Mack MD knee, initial encounter 10/25/2019 M23.92 Unspecified internal derangement of left knee Eric Mack MD Plan of Treatment 10/25/2019 - Eric Mack, MDS83.412A Sprain of medial collateral ligament of left knee, initial encounterFollow up:Follow up: after testing is [id number] Unspecified internal derangement of left knee Functional Status Description No Information Available Mental Status Description No Information Available Referrals Description No Information Available
--- OUTSIDE RECORDS SUMMARY | 2019-12-03 18:58 | XMS REPORT | Continuity of Care Document ---
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
[2019-12-03 19:09] VITALS: BP 139/95
[2019-12-03 19:20] LABS: Influenza B Molecular POSITIVE (Negative)
--- NOTE | 2019-12-03 19:33 | UC ---
FLU HPI - HPI Summary HPI Summary: 29 yo with onset of fever, chills, headache, cough and myalgias today. had vomiting and diarrhea about 4 days ago. Remote hx of exercise induced asthma. - History of Current Complaint Chief Complaint: UCGeneralIllness Stated Complaint: HEADACHE/CONGESTION Time Seen by Provider: 12/03/19 19:25 Hx Obtained From: Patient Onset/Duration: Lasting Days - 2 Severity Currently: Mild Severity Initially: Moderate Pain Intensity: 5 Associated Signs & Symptoms: Positive: Fever, T Max - 101.8, Myalgia, Sore Throat, Nasal Congestion, Headache - Risk Factors Influenza Risk Factors: Negative - Allergy/Home Medications Allergies/Adverse Reactions: Allergies Allergy/AdvReac Type Severity Reaction Status Date / Time No Known Allergies Allergy Verified 12/03/19 19:09 PMH/Surg Hx/FS Hx/Imm Hx Previously Healthy: Yes - Surgical History Surgical History: Yes Surgery Procedure, Year, and Place: Lt LOWER LEG - NERVE ENTRAPMENT FROM SCAR - REMOVAL OF SCAR TISSUE - Family History Known Family History: Positive: Cardiac Disease, Hypertension, Diabetes, Other - no FMH of furuncles or carbuncles Family History: Dyslipidemia - Social History Occupation: Employed Full-time Lives: With Family Alcohol Use: Occasionally Alcohol Amount: 5-15 Substance Use Type: None Substance Use Comment - Amount & Last Used: daily Smoking Status (MU): Former Smoker Amount Used/How Often: pack a day for 6 yrs When Did the Patient Quit Smoking/Using Tobacco: 2013 - Immunization History Most Recent Influenza Vaccination: Not the 2016/2017 Season Review of Systems All Other Systems Reviewed And Are Negative: Yes Constitutional: Positive: Fever, Fatigue ENT: Positive: Sore Throat, Nasal Discharge, Sinus Congestion Respiratory: Positive: Cough Cardiovascular: Positive: Negative Gastrointestinal: Positive: Negative Genitourinary: Positive: Negative Motor: Positive: Negative Neurovascular: Positive: Negative Musculoskeletal: Positive: Negative Neurological: Positive: Headache Psychological: Positive: Negative Is Patient Immunocompromised?: No Physical Exam Triage Information Reviewed: Yes Appearance: Ill-Appearing, Obese Vital Signs: Initial Vital Signs Temp 98.2 F 12/03/19 19:06 Pulse 68 12/03/19 19:06 Resp 16 12/03/19 19:06 BP 139/95 12/03/19 19:06 Pulse Ox 100 12/03/19 19:06 Vital Signs Reviewed: Yes Eyes: Positive: Conjunctiva Clear ENT: Positive: Pharyngeal erythema, Tonsillar swelling. Negative: Tonsillar exudate Neck exam: Normal Neck: Positive: Supple, Nontender, No Lymphadenopathy Respiratory: Positive: Lungs clear, Normal breath sounds, No respiratory distress Cardiovascular: Positive: RRR, No Murmur Musculoskeletal Exam: Normal Neurological Exam: Normal Psychological Exam: Normal Skin Exam: Normal Diagnostics - Laboratory Lab Results: flu b positive Flu Course/Dx - Course Course Of Treatment: symptomatic treatment; discussed tamiflu with decision not to rx - Differential Dx/Diagnosis Differential Diagnosis/HQI/PQRI: Influenza, Upper Respiratory Infection Provider Diagnosis: Influenza B Discharge ED - Sign-Out/Discharge Documenting (check all that apply): Patient Departure All imaging exams completed and their final reports reviewed: No Studies - Discharge Plan Condition: Stable Disposition: HOME Patient Education Materials: Influenza (ED) Forms: *Work Release Referrals: No Primary Care Phys,NOPCP [Primary Care Provider] - Additional Instructions: You have influenza B. Increase fluids and use ibuprofen 600mg for control of fever, and you can alternate 650mg of acetaminophen for improved control of fever. Follow up if you have increasing shortness of breath or chest pain. - Billing Disposition and Condition Condition: STABLE Disposition: Home
== END 2019-12-03 19:47 | disposition home or self-care (01) ==
LOC: UCCORT 16:57
DX: J10.1 Influenza due to other identified influenza virus with other respiratory manifestations (principal); Z87.891 Personal history of nicotine dependence
CPT/HCPCS: 99211; G0463